=== PATIENT | male | born 1975 | race Caucasian/White ===

== ENCOUNTER 2019-09-05 10:08 | Inpatient (IN) | payer OTHER ==
[~2019-09-05] VITALS: Ht 165.1 cm; Wt 64.9 kg
[2019-09-05] MEDS ORDERED: NEXIUM40 M1 PO (10:26)
[2019-09-05] MEDS ORDERED: INTESTINEX680 M2 PO (10:26)
[2019-09-05] MEDS ORDERED: EPIDIOLEX100 MG/1 M PO (10:27)
[2019-09-05] MEDS ORDERED: PEPCID AC20 MG PO (10:27)
[2019-09-05] MEDS ORDERED: ULTRACET (10:27)
[2019-09-05] MEDS ORDERED: DICLO GEL1 EACH TP (10:28)
--- NOTE | 2019-09-05 10:28 | NUR ---
PACIENTE ALERTA Y ORIENTADO X3 REFIRE SNGRADO ANAL DESDE HACEN DOS SEMANAS, DR.J GAMBOA COLON RESTAL REFIRE PACIENTE A AIMEE DE EMERGENCIA PARA EVALUACION MEDICA. SE UBICA EN AREA DE OBSERVACION.
--- NOTE | 2019-09-05 11:37 | NUR ---
PTE EVALUADO POR LA DRA DAVIS QUIEN [place]. SE ORIENTA SOBRE EL MISMO, LO CUAL REFIERE ENTENDER. SE REALIZAN PRUEBAS DE LABORATORIO Y SE ADMINISTRA MEDICAMENTO KELY ORDEN MEDICA Y SIGUIENDO MEDIDAS ASEPTICAS.
[2019-09-06] MEDS ORDERED: OXYC1TAB9 PO (13:42)
[2019-09-06] MEDS ORDERED: POLY119PG PO (13:43)
[2019-09-06] MEDS ORDERED: RECTICARE30 GM TOP (13:44)
[2019-09-06] MEDS ORDERED: TAMS0.4C PO (15:01)
== END 2019-09-06 17:24 | disposition home or self-care (01) | DRG 349 ==
LOC: ER 10:08 → SEC-K 13:10 → SURH 13:10
PROVIDERS: ADMIT Surgery
PROC: 06LY0CC Occlusion of Hemorrhoidal Plexus with Extraluminal Device, Open Approach (ICD-10-PCS; principal; 2019-09-05 17:00)
DX: K64.2 Third degree hemorrhoids (principal)